=== PATIENT | male | born 1980 | race Caucasian/White ===

== ENCOUNTER 2019-01-31 14:21 | Emergency (ER) | payer OTHER ==
[~2019-01-31] VITALS: Ht 172.7 cm; Wt 79.4 kg
[2019-01-31] MEDS ORDERED: ULTRAM 50MG TAB50 MG PO (15:30)
[2019-01-31 16:30] VITALS: BP 131/84
== END 2019-01-31 16:30 | disposition home or self-care (01) ==
LOC: ER 14:21
DX: S92.342A Displaced fracture of fourth metatarsal bone, left foot, initial encounter for closed fracture (principal); S92.352A Displaced fracture of fifth metatarsal bone, left foot, initial encounter for closed fracture; X50.1XXA Overexertion from prolonged static or awkward postures, initial encounter; Y93.39 Activity, other involving climbing, rappelling and jumping off; Y92.89 Other specified places as the place of occurrence of the external cause; Y99.9 Unspecified external cause status